=== PATIENT | female | born 1980 | race Caucasian/White ===

== ENCOUNTER 2022-08-20 00:56 | Inpatient (IN) | payer OTHER, SELFPAY ==
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
[2022-08-20 09:15] VITALS: BP 121/64; PULSE 107; RESP 14; TEMP 36.5
[2022-08-20] MEDS: TiZANidine HCL 4 MG TABLET PO ×2 (09:58→14:37)
[2022-08-20] MEDS: Loratadine 10 MG TABLET PO (09:59)
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
[2022-08-20] MEDS: clonazePAM 1 MG TABLET PO ×2 (14:27→21:26)
[2022-08-20] MEDS: FLUOXETINE 20 MG 3 EACH PO (14:27)
[2022-08-20] MEDS: Ondansetron ODT 4 MG TAB.RAPDIS TRANSLINGU ×2 (14:38→21:26)
[2022-08-20] MEDS: Butalb/Acetamin/Caff 50/325/40 TABLET 1 TAB PO ×2 (14:38→21:30)
[2022-08-20 18:00] VITALS: BP 120/66; PULSE 109; RESP 18; TEMP 36.6; O2SAT 100
[2022-08-20] MEDS: TiZANidine HCL 4 MG TABLET 8 MG PO (21:24)
--- NOTE | 2022-08-21 | ECG_ITS ---
Test Reason : prolonged qt Blood Pressure : / mmHG Vent. Rate : 079 BPM Atrial Rate : 079 BPM P-R Int : 150 ms QRS Dur : 076 ms QT Int : 402 ms P-R-T Axes : 035 016 039 degrees QTc Int : 460 ms Normal sinus rhythm Normal ECG No previous ECGs available Referred By: Gurvinder River Electronically Signed By:Gareth Sanderson
[2022-08-21 06:00] VITALS: BP 153/94; PULSE 113; RESP 14; TEMP 37.1
[2022-08-21 07:13] LABS: Alanine Aminotransferase 23 U/L (0-31); Albumin Level 3.6 g/dL (3.5-5.0); Alkaline Phosphatase 52 U/L (39-117); Anion Gap 10 (12-20); Aspartate Amino Transferase 33 U/L (5-31); Bilirubin Total 0.2 mg/dL (0.0-1.0); Blood Urea Nitrogen 10 mg/dL (9-16); Calcium 8.7 mg/dL (8.4-10.2); Carbon Dioxide 26 mmol/L (22-29); Chloride 108 mmol/L (96-108); Cholesterol 201 mg/dL; Estimated Glomerular Filt Rate > 60; Glucose Fasting 91 mg/dL (60-99); HDL Cholesterol 61 mg/dL; LDL Cholesterol Calculated 121 mg/dl; Potassium 4.9 mmol/L (3.3-5.1); Sodium 139 mmol/L (135-145); Total Protein 6.8 g/dL (6.5-8.0); Triglycerides 95 mg/dL
[2022-08-21 08:23] LABS: Magnesium 1.9 mg/dL (1.6-2.6)
[2022-08-21] MEDS: Butalb/Acetamin/Caff 50/325/40 TABLET 1 TAB PO ×2 (08:40→16:21)
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
[2022-08-21] MEDS: clonazePAM 1 MG TABLET PO ×2 (11:15→21:13)
[2022-08-21] MEDS: Ondansetron ODT 4 MG TAB.RAPDIS TRANSLINGU ×2 (11:16→18:40)
[2022-08-21] MEDS: TiZANidine HCL 4 MG TABLET PO ×2 (11:16→16:23)
[2022-08-21] MEDS: Loratadine 10 MG TABLET PO (11:16)
[2022-08-21] MEDS: FLUOXETINE 20 MG 3 EACH PO (11:24)
--- NOTE | 2022-08-21 13:34 | PC.NURSE ---
Nursing supervisor cold rolling notified of need for EKG. Will send staff.
[2022-08-21 14:11] LABS: Blood Urea Nitrogen 10 mg/dL (9-16); Calcium 8.2 mg/dL (8.4-10.2); Estimated Glomerular Filt Rate > 60; Glucose Random 149 mg/dL (60-115); Magnesium 1.8 mg/dL (1.6-2.6)
[2022-08-21 14:26] LABS: Anion Gap 11 (12-20); Carbon Dioxide 24 mmol/L (22-29); Chloride 106 mmol/L (96-108); Potassium 3.6 mmol/L (3.3-5.1); Sodium 137 mmol/L (135-145)
[2022-08-21] MEDS: Magnesium Oxide 400 MG TABLET PO (17:35)
[2022-08-21 18:00] VITALS: BP 96/55; PULSE 92; RESP 16; TEMP 36.4; O2SAT 100
[2022-08-21] MEDS: TiZANidine HCL 4 MG TABLET 8 MG PO (21:12)
[2022-08-22] MEDS: TiZANidine HCL 4 MG TABLET PO ×2 (06:54→15:15)
[2022-08-22] MEDS: Acetaminophen 325 MG TABLET 650 MG PO (06:55)
[2022-08-22] MEDS: hydrOXYzine HCL 25 MG TABLET PO ×2 (06:55→21:08)
[2022-08-22 11:40] VITALS: BP 129/77; PULSE 99; RESP 14; TEMP 36.9; O2SAT 100
[2022-08-22] MEDS: FLUOXETINE 20 MG 3 EACH PO (11:41)
[2022-08-22] MEDS: Loratadine 10 MG TABLET PO ×2 (11:42→21:06)
[2022-08-22] MEDS: Magnesium Oxide 400 MG TABLET PO ×2 (11:45→16:22)
[2022-08-22] MEDS: clonazePAM 1 MG TABLET PO ×2 (12:38→21:06)
[2022-08-22] MEDS: Ondansetron ODT 4 MG TAB.RAPDIS TRANSLINGU (13:31)
--- NOTE | 2022-08-22 14:18 | MHC.CLN ---
NUTRITION CONSULT VISITED WITH PATIENT ABOUT HER DIET PREFERENCES. FOLLOWS VEGETARIAN DIET, NO EGGS, DAIRY OK. DOES NOT WANT NUTRITIONAL SUPPLEMENT. ENCOURAGED PT TO MAKE OWN FOOD CHOICES AND REQUEST SNACKS. THIS IV TECHNICIAN COMMUNICATED FOOD PREFERENCES WITH [employer].
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
[2022-08-22 16:24] VITALS: BP 142/97; PULSE 109; RESP 18; O2SAT 98
[2022-08-22] MEDS: TiZANidine HCL 4 MG TABLET 8 MG PO (21:05)
[2022-08-22] MEDS: traZODone HCL 50 MG TABLET PO (21:06)
[2022-08-22] MEDS: Atorvastatin Calcium 10 MG TABLET PO (21:06)
[2022-08-22] MEDS: Montelukast Sodium 10 MG TABLET PO (21:06)
[2022-08-23] MEDS: traZODone HCL 50 MG TABLET PO ×2 (00:49→20:28)
[2022-08-23] MEDS: Magnesium Oxide 400 MG TABLET PO ×2 (09:04→18:03)
[2022-08-23] MEDS: FLUOXETINE 20 MG 3 EACH PO (09:04)
[2022-08-23] MEDS: Acetaminophen 325 MG TABLET 650 MG PO ×2 (09:32→21:57)
[2022-08-23 10:25] VITALS: BP 110/71; PULSE 116; RESP 14; TEMP 36.6; O2SAT 99
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
[2022-08-23] MEDS: Ondansetron ODT 4 MG TAB.RAPDIS TRANSLINGU (17:14)
[2022-08-23 18:12] VITALS: BP 124/71; PULSE 125; TEMP 36.5
[2022-08-23] MEDS: Loratadine 10 MG TABLET PO (20:18)
[2022-08-23] MEDS: Montelukast Sodium 10 MG TABLET PO (20:18)
[2022-08-23] MEDS: hydrOXYzine HCL 25 MG TABLET PO (20:18)
[2022-08-23] MEDS: Atorvastatin Calcium 10 MG TABLET PO (20:18)
[2022-08-23] MEDS: TiZANidine HCL 4 MG TABLET 8 MG PO (20:19)
[2022-08-23] MEDS: clonazePAM 1 MG TABLET PO (21:57)
[2022-08-24 06:00] VITALS: BP 122/89; PULSE 128; RESP 16
[2022-08-24] MEDS: FLUOXETINE 20 MG 3 EACH PO (08:13)
[2022-08-24] MEDS: Magnesium Oxide 400 MG TABLET PO (08:13)
[2022-08-24 08:31] LABS: MANUAL DIFF FLAG NO
[2022-08-24 08:39] LABS: Basophils Percent Auto 0.2 % (0-2); Eosinophils Absolute Auto 0.4 X10*3/uL (0.0-0.4); Eosinophils Percent Auto 8.6 % (0-4); Hematocrit 30.5 % (37.0-47.0); Hemoglobin 9.1 g/dl (12.0-16.0); Imm Gran Abs Auto 0.03 X10*3/uL (0.00-0.03); Imm Gran Pct Auto 0.7 % (0.0-0.4); Lymphocytes Absolute Auto 1.9 X10*3/uL (1.2-4.9); Lymphocytes Percent Auto 46.1 % (20-40); Mean Corpuscular HGB Conc 29.8 g/dl (31.0-35.0); Mean Corpuscular Volume 80.5 fL (80.0-98.0); Mean Platelet Volume 9.4 fL (9.4-12.3); Monocytes Absolute Auto 0.5 X10*3/uL (0.1-1.2); Monocytes Percent Auto 10.9 % (2-11); Neutrophils Absolute Auto 1.4 x10*3/uL (2.0-8.3); Neutrophils Percent Auto 33.5 % (45-73); Platelet Count 284 X10*3/uL (160-400); Red Blood Count 3.79 X10*6/uL (4.20-5.50); Red Cell Distribution Width 20.3 % (11.0-16.0); White Blood Count 4.2 X10*3/uL (4.8-10.8)
[2022-08-24] MEDS: hydrOXYzine HCL 25 MG TABLET PO (08:44)
--- NOTE | 2022-08-24 09:00 | ECG_ITS ---
Test Reason : prolonged qtc Blood Pressure : / mmHG Vent. Rate : 095 BPM Atrial Rate : 095 BPM P-R Int : 134 ms QRS Dur : 084 ms QT Int : 372 ms P-R-T Axes : 044 008 043 degrees QTc Int : 467 ms Normal sinus rhythm Possible Left atrial enlargement Borderline ECG When compared with ECG of 21-AUG-2022 13:46, No significant change was found Referred By: Silva Leon Electronically Signed By:Gareth Sanderson
[2022-08-24 09:15] LABS: Anion Gap 11 (12-20); Blood Urea Nitrogen 5 mg/dL (9-16); Calcium 8.8 mg/dL (8.4-10.2); Carbon Dioxide 24 mmol/L (22-29); Chloride 107 mmol/L (96-108); Estimated Glomerular Filt Rate > 60; Glucose Random 95 mg/dL (60-115); Iron 11 mcg/dL (30-160); Magnesium 2.2 mg/dL (1.6-2.6); Percent Iron Saturation 4 % (15-50); Potassium 5.2 mmol/L (3.3-5.1); Sodium 137 mmol/L (135-145); Total Iron Binding Capacity 289 mcg/dL (228-428); Unsaturated Iron Binding 278 ug/dL
[2022-08-24] MEDS: Acetaminophen 325 MG TABLET 650 MG PO (09:29)
[2022-08-24 09:44] LABS: Folate 14.5 ng/mL (> or = 4.0); Thyroid Stimulating Hormone 0.52 uIU/mL (0.32-4.0); Vitamin B12 1375 pg/mL (200-900); Vitamin D 25-OH Total 11.7 ng/mL (>30)
[2022-08-24] MEDS: Ondansetron ODT 4 MG TAB.RAPDIS TRANSLINGU (12:17)
--- NOTE | 2022-08-24 16:06 | P.DS_ITS ---
DS: Providers Provider Date of Service: 08/24/22 Date of admission: 08/20/22 00:56 Date of discharge: 08/24/21 Primary care physician: Unknown Physician Admitting clinician: Silva Leon Attending physician on admission: Gama Bermeo Consults: 08/20/22 10:58 Consult to Hospitalist Routine Comment: Consulting Provider: Hospitalist Reason For Exam: DIRECT ADMISSION Attending physician on discharge: Gama Bermeo Discharging clinician: Silva Leon DS: Diagnosis Discharge Diagnosis (1) Major depress, part remis: Status: Acute (2) Routine history and physical examination of adult: Status: Inactive DS: Medications Discharge Medications Home Medications: Home Medications Medication Instructions Recorded Confirmed acetaminophen-caffeine 500 mg-32 1 tab PO QID PRN Migraine Headache 08/20/22 08/20/22 mg tablet atorvastatin 10 mg tablet 10 mg PO BEDTIME 08/20/22 08/20/22 lactulose 20 gram oral packet 20 g PO DAILY PRN Constipation 08/20/22 08/20/22 melatonin 3 mg tablet 3 mg PO BEDTIME PRN Insomnia 08/20/22 08/20/22 pantoprazole 40 mg tablet,delayed 40 mg PO DAILY 08/20/22 08/20/22 release trimethobenzamide 250 mg capsule 200 mg PO TID 08/20/22 08/20/22 Previous Rx's Medication Instructions Recorded clonazepam 1 mg tablet 1 mg PO BID PRN Anxiety #14 tabs 08/24/22 fluoxetine 20 mg tablet 20 mg PO DAILY #30 tabs 08/24/22 fluoxetine 60 mg tablet 60 mg PO DAILY #30 tabs 08/24/22 magnesium oxide 400 mg (241.3 mg 400 mg PO BIDPC #60 tabs 08/24/22 magnesium) tablet naltrexone 50 mg tablet 6 mg PO DAILY #10 tabs 08/24/22 tizanidine 4 mg tablet 4 mg PO BID PRN Headache #0 tabs 08/24/22 tizanidine 4 mg tablet 8 mg PO BEDTIME #0 tabs 08/24/22 Mental Status Exam Mental Status Exam Patient Appearance: Appropriate Patient Orientation: Person, Place, Time and Situation Level of Consciousness: Alert Patient Behavior: Talkative and Good Eye Contact Mood Description: Anxious and Apprehensive Affect Description: Anxious and Apprehensive Patient Cognition Impaired: No Ability to Follow Directions: Good Speech Pattern: Spontaneous Speech and Soft-Spoken Memory Description: Intact Hallucinations: None Delusions: Not Present Perceptual Disturbances: Depersonalization and Derealization Thought Process: Intact and Goal Oriented Thought Content: positive for Intact, positive for Goal Oriented and positive for Suicidal Ideation (denies) Depressive Symptoms: Increased Anxiety and Thoughts of /Suicide (denies) Judgement: Good Data Data Completed and Pending Completed studies during hospitalization [Text1]: 08/21/22 08/21/22 08/24/22 06:47 13:42 08:11 WBC RBC Hgb Hct MCV MCH MCHC RDW Plt Count MPV Immature Gran % (Auto) Neut % (Auto) Lymph % (Auto) [place] % (Auto) Eos % (Auto) Baso % (Auto) Lymph # (Auto) [place] # (Auto) Eos # (Auto) Baso # (Auto) Abs Immat Gran (auto) Absolute Neuts (auto) Absolute Nucleated RBC Nucleated RBC % (auto) Sodium 139 137 137 Potassium 4.9 3.6 D 5.2 H D Chloride 108 106 107 Carbon Dioxide 26 24 24 Anion Gap 10 L 11 L 11 L BUN 10 10 5 L Creatinine 0.80 0.69 0.61 Estim Creat Clear Calc TNP TNP TNP Estimated GFR > 60 > 60 > 60 Random Glucose 149 H 95 Fasting Glucose 91 Calcium 8.7 8.2 L 8.8 D Magnesium 1.9 1.8 2.2 Iron 11 L TIBC 289 % Saturation 4 L Unsat Iron Binding 278 Total Bilirubin 0.2 AST 33 H ALT 23 Alkaline Phosphatase 52 Total Protein 6.8 Albumin 3.6 Triglycerides 95 Cholesterol 201 LDL Cholesterol, Calc 121 HDL Cholesterol 61 Vitamin B12 1375 H 25-OH Vitamin D Total 11.7 Folate 14.5 TSH 0.52 08/24/22 08:11 WBC 4.2 L RBC 3.79 L Hgb 9.1 L Hct 30.5 L MCV 80.5 MCH 24.0 L MCHC 29.8 L RDW 20.3 H Plt Count 284 MPV 9.4 Immature Gran % (Auto) 0.7 H Neut % (Auto) 33.5 L Lymph % (Auto) 46.1 H [place] % (Auto) 10.9 Eos % (Auto) 8.6 H Baso % (Auto) 0.2 Lymph # (Auto) 1.9 [place] # (Auto) 0.5 Eos # (Auto) 0.4 Baso # (Auto) 0.0 Abs Immat Gran (auto) 0.03 Absolute Neuts (auto) 1.4 L Absolute Nucleated RBC 0.000 Nucleated RBC % (auto) 0.0 Sodium Potassium Chloride Carbon Dioxide Anion Gap BUN Creatinine Estim Creat Clear Calc Estimated GFR Random Glucose Fasting Glucose Calcium Magnesium Iron TIBC % Saturation Unsat Iron Binding Total Bilirubin AST ALT Alkaline Phosphatase Total Protein Albumin Triglycerides Cholesterol LDL Cholesterol, Calc HDL Cholesterol Vitamin B12 25-OH Vitamin D Total Folate TSH DS: Summary Hospital Course Hospital Course: Admission to adult psychiatry for exacerbation of PTSD, Major Depression, Fibormyalgia. 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 Regime was re-established, Prozac was titrated. Family meeting was completed and pt planned discharge, out patient appointments and legal appointments to address the DUI. Time spent discussing smoking cessation with patient: 3 to 10 minutes Status at Discharge Functional status at discharge: independent ambulation Overall status at discharge: patient is progressing back to baseline Time Spent with Patient Time attestation: Total time managing care of this patient today ____ minutes. Time spent: Greater than 30 minutes Discharge Plan Discharge Anticipated Discharge Date/Time: 08/24/22 15:00 Patient Disposition: Home, Self-Care Discharge Diagnosis: PTSD Recurrent Major Depression, Severe Fibromyalgia Referrals: [facility]: Roya Iqbal [Other] - 08/30/22 11:30 am (Initial diagnostic evaluation for Therapy and Psychiatry services at appointment you may request psychiatrist: Dr. Tato Arango who is a psychiatric provider through [facility]. You should also request a therapist and ask if they will be able to support you with counseling weekly until you have been assigned a permanent clinician.) [facility] Partial Hospitalization Program (PHP) [Other] - 1 Week (Information for Partial Hospitalization Program Patient may call and self-refer to PHP program) Forest Barajas MD [Physician] - 08/31/22 2:30 pm (in office) Discharge Medications: New tizanidine 4 mg Tablet 8 mg PO BEDTIME Qty: 0 0RF tizanidine 4 mg Tablet 4 mg PO BID PRN (Reason: Headache) Qty: 0 0RF magnesium oxide 400 mg (241.3 mg magnesium) Tablet 400 mg PO BIDPC Qty: 60 0RF fluoxetine 20 mg tablet 20 mg PO DAILY Qty: 30 0RF fluoxetine 60 mg tablet 60 mg PO DAILY Qty: 30 0RF naltrexone 50 mg tablet 6 mg PO DAILY Qty: 10 0RF Rx Instructions: In a vegan capsule Continued atorvastatin 10 mg Tablet 10 mg PO BEDTIME melatonin 3 mg Tablet 3 mg PO BEDTIME PRN (Reason: Insomnia) trimethobenzamide 250 mg Capsule 200 mg PO TID pantoprazole 40 mg Tablet,Delayed Release (Dr/Ec) 40 mg PO DAILY lactulose 20 gram Packet 20 g PO DAILY PRN (Reason: Constipation) acetaminophen-caffeine 500-32 mg Tablet 1 tab PO QID PRN (Reason: Migraine Headache) clonazepam 1 mg Tablet 1 mg PO BID PRN (Reason: Anxiety) Qty: 14 1RF Discontinued enoxaparin 40 mg/0.4 mL Syringe 40 mg SUBCUT Q24H fluoxetine 60 mg Tablet 60 mg PO DAILY tizanidine 4 mg tablet 4 mg PO QID Discharge Orders: Discharge Order (Routine); Ordered 08/24/22 Ordered By: Silva Leon Diet: Advance to usual diet Activity on Discharge: As tolerated Stand Alone Forms: Patient Portal Discharge page, Community Support Care Plan Goals: Mood and Behavioral Stabilization Health Concerns: Mood and Behavioral Stabilization Plan of Treatment: Dr. Cintia Dickey [address], [place], [place] [phone], Gynecology, will contact you to discuss your needs and an appointment [facility], Groups, [facility] [phone]. Please call for group information and intake. [facility] [phone] Ext [phone]. Please call to make an appt to begin the program if you are interested. Assessment: Family meeting with pt, mother, Benjamin SINGLETON, [email or web address] via phone who is an MD. Pt is non suicidal, homicidal, manic or psychotic. Family agrees that discharge is the appropriate plan at this time Pt has accepted referrals and will follow up both medically and psychiatrically with resources Discharge Date/Time: 08/24/22 14:50
== END 2022-08-24 14:50 | disposition home or self-care (01) | DRG 885 ==
PROVIDERS: Internal Medicine; Psychiatry & Neurology Psychiatry; Admitting Provider Psychiatry & Neurology Psychiatry; Visit Provider Clinical Nurse Specialist Psychiatric/Mental Health, Adult
DX: F32.2 Major depressive disorder, single episode, severe without psychotic features (principal); R45.851 Suicidal ideations; F43.10 Post-traumatic stress disorder, unspecified; G43.909 Migraine, unspecified, not intractable, without status migrainosus; M79.7 Fibromyalgia; Z91.040 Latex allergy status; Z91.51 Personal history of suicidal behavior; Z88.8 Allergy status to other drugs, medicaments and biological substances; Z79.899 Other long term (current) drug therapy
CPT/HCPCS: 36415; 80048; 80053; 80061; 82306; 82607; 82746; 83540; 83735; 84443; 85025; 93005